=== PATIENT | female | born 1930 | race Caucasian/White ===

== ENCOUNTER 2017-12-21 18:19 | Inpatient (IN) | payer MEDICARE ==
[~2017-12-21] VITALS: Ht 170.2 cm; Wt 95.7 kg
[~2017-12-21 18:19] MED LIST: AMLO5TAB96 PO; CLOP75 PO; GLIP5 PO; GLUCTAB PO; LASI20TA PO; LORT5TAB PO; MAGNESIUM GLUC PO; POTA-243 PO; SIMV20 PO; TOPR50TA PO; [UNRECOGNIZED DRUG - OTHER] PO
[2017-12-21 18:47] VITALS: BP 212/93; PULSE 59; RESP 18; TEMP 98.3; O2SAT 97
[2017-12-21 19:57] VITALS: BP 205/88; PULSE 52; RESP 18; O2SAT 96
--- NOTE | 2017-12-21 20:02 | PD ---
HPI Chief Complaint: Fall Time Seen by Provider: 19:43 Travel History International Travel<30 days: No Contact w/Intl Traveler<30days: No Traveled to known affect area: No History of Present Illness HPI 87-year-old female presents for evaluation after mechanical fall. This afternoon the patient reports that she tripped and fell, landing on her right hip. Since then she has had pain in her right hip and inability to put weight on her right leg. Pain is aching, constant, worse with movement. She reports previous history of right hip fracture which required operative repair in [place] 5 years ago. She denies any head injury, neck or back pain, injury to the arms, chest, abdomen, back. Denies any open wounds. She has no other complaints at this time. PFSH Past Medical History Hx Anticoagulant Therapy: Yes (ASA) Cardiac Catheterization: Yes (STENT PLACED 5 YRS AGO) High Cholesterol: Yes Chest Pain: Yes Coronary Artery Disease: Yes Diabetes: Yes Diminished Hearing: No Hypertension: Yes Menopausal: Yes Social History Alcohol Use: No Tobacco Use: No Substance Use: No Allergies-Medications (Allergen,Severity, Reaction): Coded Allergies: No Known Allergies (Verified Adverse Reaction, Unknown, 12/21/17) Reported Meds & Prescriptions Reported Meds & Active Scripts Active Lortab 5/500 (Acetaminophen/Hydrocodone Bitart) 5 Mg/500 Mg Tab 1-2 Tab PO Q4- 6HPRN FOR PAIN Reported Zocor (Simvastatin) 20 Mg Tab 20 Mg PO HS Norvasc (Amlodipine Besylate) 5 Mg Tab 5 Mg PO DAILY [Magnesium Gluc] 500 Mg PO DAILY [Hazaar] 100 PO DAILY 100/25 Glucophage (Metformin HCl) 500 Mg Tab 500 Mg PO BID 2 TABS Lasix (Furosemide) 20 Mg Tab 20 Mg PO DAILY Glucotrol (Glipizide) 5 Mg Tab 5 Mg PO BID Plavix (Clopidogrel Bisulfate) 75 Mg Tab 75 Mg PO DAILY K-Dur (Potassium Chloride) 10 Meq Tabcr 10 Meq PO DAILY Toprol Xl (Metoprolol Succinate) 50 Mg Tabcr 50 Mg PO BID Review of Systems Except as stated in HPI: all other systems reviewed are Neg Physical Exam Narrative GENERAL: Well-developed well-nourished female in no acute distress SKIN: Warm and dry. HEAD: Atraumatic. Normocephalic. EYES: Pupils equal and round. No scleral icterus. No injection or drainage. ENT: No nasal bleeding or discharge. Mucous membranes pink and moist. NECK: Trachea midline. No JVD. CARDIOVASCULAR: Regular rate and rhythm. No murmur appreciated. RESPIRATORY: No accessory muscle use. Clear to auscultation. Breath sounds equal bilaterally. GASTROINTESTINAL: Abdomen soft, non-tender, nondistended. Hepatic and splenic margins not palpable. MUSCULOSKELETAL: No obvious deformities. Tender to palpation right hip. There is pain with passive and attempts at active range of motion of the right hip. No obvious shortening or malrotation of the hip. NEUROLOGICAL: Awake and alert. No obvious cranial nerve deficits. Motor grossly within normal limits. Normal speech. Data Data Last Documented VS Vital Signs Date Time Temp Pulse Resp B/P (MAP) Pulse Ox O2 Delivery O2 Flow Rate FiO2 12/21/17 20:13 55 96 Room Air 12/21/17 19:57 18 205/88 (127) 12/21/17 18:47 98.3 Orders Orders Femur (Ap & Lat/2vws) (12/21/17 19:57) Pelvis, Ap Only (Routine) (12/21/17 19:57) Morphine Inj (Morphine Inj) (12/21/17 21:15) Ondansetron Inj (Zofran Inj) (12/21/17 21:15) Complete Blood Count With Diff (12/21/17 21:14) Basic Metabolic Panel (Bmp) (12/21/17 21:14) Act Partial Throm Time (Ptt) (12/21/17 21:14) Prothrombin Time / Inr (Pt) (12/21/17 21:14) Admit Order (Ed Use Only) (12/21/17 21:46) Labs Laboratory Tests Test 12/21/17 21:15 White Blood Count 8.4 TH/MM3 Red Blood Count 5.35 MIL/MM3 Hemoglobin 14.0 GM/DL Hematocrit 42.6 % Mean Corpuscular Volume 79.5 FL Mean Corpuscular Hemoglobin 26.2 PG Mean Corpuscular Hemoglobin Concent 33.0 % Red Cell Distribution Width 16.2 % Platelet Count 156 TH/MM3 Mean Platelet Volume 9.1 FL Neutrophils (%) (Auto) 83.6 % Lymphocytes (%) (Auto) 9.3 % Monocytes (%) (Auto) 5.8 % Eosinophils (%) (Auto) 0.9 % Basophils (%) (Auto) 0.4 % Neutrophils # (Auto) 7.0 TH/MM3 Lymphocytes # (Auto) 0.8 TH/MM3 Monocytes # (Auto) 0.5 TH/MM3 Eosinophils # (Auto) 0.1 TH/MM3 Basophils # (Auto) 0.0 TH/MM3 CBC Comment DIFF FINAL Differential Comment MDM Medical Decision Making Medical Screen Exam Complete: Yes Emergency Medical Condition: Yes Medical Record Reviewed: Yes Differential Diagnosis Right hip fracture, contusion, strain, hematoma Narrative Course X-ray imaging reveals a lucency in the right symphysis pubis suggestive of fracture. Right femur x-ray reveals no evidence of fracture. Unfortunately the patient is still unable to ambulate and therefore she will be admitted for observation. IV analgesics, lab work has been ordered. Discussed with Dr. Tirado who is agreeable with admission. Diagnosis Primary Impression: Closed fracture of symphysis pubis Admitting Information Admitting Physician Requests: Observation Vikash Villar Dec 21, 2017 20:02
--- NOTE | 2017-12-21 21:04 | RADRPT ---
EXAM DATE/TIME: 12/21/2017 20:16 [facility] COMPARISON: FEMUR RIGHT (AP & LAT/2VWS), December 21, 2017, 20:16. INDICATIONS : Pelvic pain post fall. MEDICAL HISTORY : None. SURGICAL HISTORY : Right hip replacement. ENCOUNTER: Initial ACUITY: 1 day PAIN SCORE: 8/10 LOCATION: Bilateral pelvis FINDINGS: There is a linear lucency involving the right symphysis pubis suggestive of fracture. Clinical correl ation is recommended. CONCLUSION: Linear lucency involving the right symphysis pubis suggestive of fracture. Clinical c orrelation is recommended. Hector Calzada MD on December 21, 2017 at 21:01 Board Certified Radiologist. This report was verified electronically.
--- NOTE | 2017-12-21 21:05 | RADRPT ---
EXAM DATE/TIME: 12/21/2017 20:16 [facility] COMPARISON: No previous studies available for comparison. INDICATIONS : Right femur pain post fall. MEDICAL HISTORY : None. SURGICAL HISTORY : None. ENCOUNTER: Initial ACUITY: 1 day PAIN SCORE: 8/10 LOCATION: Right proximal femur. FINDINGS: Hardware is noted within the right femur. No acute fracture or dislocation the right femur is noted d egenerative changes are noted involving the right knee joint. CONCLUSION: No acute fracture or dislocation of the right femur. Degenerative changes involving t he right knee joint. Hector Calzada MD on December 21, 2017 at 21:03 Board Certified Radiologist. This report was verified electronically.
[2017-12-21] MEDS ORDERED: MORPHINE SULFATE 4 MG/ML INJ IV PUSH ONE (21:15)
[2017-12-21] MEDS ORDERED: ONDANSETRON HCL 4 MG/2 ML VIAL IV PUSH ONE (21:15)
[2017-12-21 21:44] LABS: BASOPHIL % 0.4 % (0.0-2.0); EOSINOPHIL # 0.1 TH/MM3 (0-0.4); EOSINOPHIL % 0.9 % (0.0-4.0); HEMATOCRIT 42.6 % (35.0-46.0); LYMPH % 9.3 % (9.0-44.0); LYMPHOCYTE # 0.8 TH/MM3 (1.0-4.8); MEAN CELL VOLUME 79.5 FL (80.0-100.0); MEAN CORPUSCULAR HEMOGLOBIN 26.2 PG (27.0-34.0); MEAN PLATELET VOLUME 9.1 FL (7.0-11.0); MONO % 5.8 % (0.0-8.0); MONOCYTE # 0.5 TH/MM3 (0-0.9); NEUT % 83.6 % (16.0-70.0); PLATELET COUNT 156 TH/MM3 (150-450); RED BLOOD COUNT 5.35 MIL/MM3 (4.00-5.30); RED CELL DISTRIBUTION WIDTH 16.2 % (11.6-17.2); WHITE BLOOD COUNT 8.4 TH/MM3 (4.0-11.0)
[2017-12-21 22:01] LABS: INTERNATIONAL NORMALIZED RATIO 0.9 RATIO; PROTHROMBIN TIME - PATIENT 9.6 SEC (9.8-11.6)
[2017-12-21 22:02] LABS: BICARBONATE 30.5 MEQ/L (21.0-32.0); CALCIUM 9.3 MG/DL (8.5-10.1); CREATININE 1.04 MG/DL (0.50-1.00)
[2017-12-21 22:34] VITALS: BP 197/79; PULSE 53; RESP 20; O2SAT 97
--- NOTE | 2017-12-21 23:13 | HHI.HP ---
HPI Service [facility] Primary Care Physician Non-Staff Admission Diagnosis right symphysis pubis fracture, inability to ambulate Diagnoses: Chief Complaint: Fall, right hip pain Travel History International Travel<30 Days: No Contact w/Intl Traveler <30 Da: No Traveled to Known Affected Are: No History of Present Illness 87-year-old female with a medical history significant for diabetes, hypertension , coronary artery disease status post stent who normally ambulates with a cane. Patient reports she was walking and tripped on the sidewalk and landed on her right hip. She has been experiencing severe pain and was unable to bear weight. She has been given IV pain medication in the emergency room but was still unable to ambulate. Currently she reports feeling okay at rest but any movement of the hip causes her to have pain. She lives alone. She denies any lightheadedness or shortness of breath prior to falling. Review of Systems Constitutional: DENIES: Fever, Chills Respiratory: DENIES: Shortness of breath Gastrointestinal: DENIES: Abdominal pain, Nausea, Vomiting Musculoskeletal: COMPLAINS OF: Joint pain Neurologic: COMPLAINS OF: Abnormal gait, Poor Balance Except as stated in HPI: all other systems reviewed are Neg Past Family Social History Past Medical History diabetes, hypertension, coronary artery disease status post stent Past Surgical History Right he surgery after fracture. Reportedly was fixed with pins and wires. Reported Medications Reported Meds & Active Scripts Active Lortab 5/500 (Acetaminophen/Hydrocodone Bitart) 5 Mg/500 Mg Tab 1-2 Tab PO Q4- 6HPRN FOR PAIN Reported Zocor (Simvastatin) 20 Mg Tab 20 Mg PO HS Norvasc (Amlodipine Besylate) 5 Mg Tab 5 Mg PO DAILY [Magnesium Gluc] 500 Mg PO DAILY [Hazaar] 100 PO DAILY 100/25 Glucophage XR 24 HR (Metformin HCl) 500 Mg Tab 500 Mg PO BID 2 TABS Lasix (Furosemide) 20 Mg Tab 20 Mg PO DAILY Glucotrol (Glipizide) 5 Mg Tab 5 Mg PO BID K-Dur (Potassium Chloride) 10 Meq Tabcr 10 Meq PO DAILY Toprol Xl (Metoprolol Succinate) 50 Mg Tabcr 50 Mg PO BID Allergies: Coded Allergies: No Known Allergies (Verified Allergy, Unknown, 12/21/17) Family History Reviewed and found to be noncontributory. Social History Does not use tobacco or alcohol. Normally lives in [place] with her daughter. However when she is down here she is mostly by herself but has friends who visits.. Physical Exam Vital Signs Vital Signs Date Time Temp Pulse Resp B/P (MAP) Pulse Ox O2 Delivery O2 Flow Rate FiO2 12/21/17 22:34 53 20 197/79 (118) 97 Room Air 12/21/17 20:13 55 96 Room Air 12/21/17 19:57 52 18 205/88 (127) 96 12/21/17 18:47 98.3 59 18 212/93 (132) 97 Physical Exam GENERAL: Elderly female in no acute distress. SKIN: No rashes, ecchymoses or lesions. Cool and dry. HEAD: Atraumatic. Normocephalic. No temporal or scalp tenderness. EYES: Pupils equal round and reactive. Extraocular motions intact. No scleral icterus. No injection or drainage. ENT: Nose without bleeding, purulent drainage or septal hematoma. Throat without erythema, tonsillar hypertrophy or exudate. Uvula midline. Airway patent. NECK: Trachea midline. No JVD or lymphadenopathy. Supple, nontender, no meningeal signs. CARDIOVASCULAR: Normal rate and regular rhythm. 2 out of 6 MILEY murmur best heard over the right upper sternal border. RESPIRATORY: Clear to auscultation. Breath sounds equal bilaterally. No wheezes , rales, or rhonchi. GASTROINTESTINAL: Abdomen soft, non-tender, nondistended. No hepato-splenomegaly , or palpable masses. No guarding. MUSCULOSKELETAL: Right hip is tender to palpation. Right hip range of motion is limited due to pain. Rest of the MSK exam unremarkable. Good range of motion and strength. NEUROLOGICAL: Awake and alert. Cranial nerves II through XII intact. Motor and sensory grossly within normal limits. Five out of 5 muscle strength in all muscle groups. Normal speech. Laboratory Laboratory Tests Test 12/21/17 21:15 White Blood Count 8.4 Red Blood Count 5.35 Hemoglobin 14.0 Hematocrit 42.6 Mean Corpuscular Volume 79.5 Mean Corpuscular Hemoglobin 26.2 Mean Corpuscular Hemoglobin Concent 33.0 Red Cell Distribution Width 16.2 Platelet Count 156 Mean Platelet Volume 9.1 Neutrophils (%) (Auto) 83.6 Lymphocytes (%) (Auto) 9.3 Monocytes (%) (Auto) 5.8 Eosinophils (%) (Auto) 0.9 Basophils (%) (Auto) 0.4 Neutrophils # (Auto) 7.0 Lymphocytes # (Auto) 0.8 Monocytes # (Auto) 0.5 Eosinophils # (Auto) 0.1 Basophils # (Auto) 0.0 CBC Comment DIFF FINAL Differential Comment Prothrombin Time 9.6 Prothromb Time International Ratio 0.9 Activated Partial Thromboplast Time 24.0 Blood Urea Nitrogen 17 Creatinine 1.04 Random Glucose 249 Calcium Level 9.3 Sodium Level 137 Potassium Level 3.5 Chloride Level 99 Carbon Dioxide Level 30.5 Anion Gap 8 Estimat Glomerular Filtration Rate 50 Result Diagram: 12/21/17211412/21/172114 Imaging Last Impressions Pelvis X-Ray 12/21/171956 Signed Impressions: Service Date/Time: Thursday, December 21, 2017 20:16 - CONCLUSION: Linear lucency involving the right symphysis pubis suggestive of fracture. Clinical correlation is recommended. Hector Calzada MD Femur X-Ray 12/21/171956 Signed Impressions: Service Date/Time: Thursday, December 21, 2017 20:16 - CONCLUSION: No acute fracture or dislocation of the right femur. Degenerative changes involving the right knee joint. MD Grace Yanceyi VTE Risk Assessment Caprini VTE Risk Assessment: Mod/High Risk (score >= 2) Caprini Risk Assessment Model Point Value = 1 Point Value = 2 Point Value = 3 Point Value = 5 Age 41-60 Minor surgery BMI > 25 kg/m2 Swollen legs Varicose veins or History of unexplained or recurrent spontaneous Oral contraceptives or hormone replacement Sepsis (< 1 month) Serious lung disease, including pneumonia (< 1 month) Abnormal pulmonary function Acute myocardial infarction Congestive heart failure (< 1 month) History of inflammatory bowel disease Medical patient at bed rest Age 61-74 Arthroscopic surgery Major open surgery (> 45 min) Laparoscopic surgery (> 45 min) Malignancy Confined to bed (> 72 hours) Immobilizing plaster cast Central venous access Age >= 75 History of VTE Family history of VTE Factor V Leiden Prothrombin [id number] Lupus anticoagulant Anticardiolipin antibodies Elevated serum homocysteine Heparin-induced thrombocytopenia Other congenital or acquired thrombophilia Stroke (< 1 month) Elective arthroplasty Hip, pelvis, or leg fracture Acute spinal cord injury (< 1 month) Prophylaxis Regimen Total Risk Factor Score Risk Level Prophylaxis Regimen 0-1 Low Early ambulation 2 Moderate Order ONE of the following: *Sequential Compression Device (SCD) *Heparin 5000 units SQ BID 3-4 Higher Order ONE of the following medications: *Heparin 5000 units SQ TID *Enoxaparin/Lovenox 40 mg SQ daily (WT < 150 kg, CrCl > 30 mL/min) *Enoxaparin/Lovenox 30 mg SQ daily (WT < 150 kg, CrCl > 10-29 mL/min) *Enoxaparin/Lovenox 30 mg SQ BID (WT < 150 kg, CrCl > 30 mL/min) AND/OR *Sequential Compression Device (SCD) 5 or more Highest Order ONE of the following medications: *Heparin 5000 units SQ TID (Preferred with Epidurals) *Enoxaparin/Lovenox 40 mg SQ daily (WT < 150 kg, CrCl > 30 mL/min) *Enoxaparin/Lovenox 30 mg SQ daily (WT < 150 kg, CrCl > 10-29 mL/min) *Enoxaparin/Lovenox 30 mg SQ BID (WT < 150 kg, CrCl > 30 mL/min) AND *Sequential Compression Device (SCD) Assessment and Plan Problem List: (1) Closed fracture of symphysis pubis ICD Code: S32.599A - Other specified fracture of unspecified pubis, initial encounter for closed fracture Status: Acute Plan: Patient has not been able to ambulate in the ED. She is frail with advanced age. She normally uses a cane. Consult orthopedics for assistance Pain management. She does not want to take narcotics. We will try Aleve per her request. Lortab as needed for breakthrough pain. (2) Diabetes ICD Code: E11.9 - Type 2 diabetes mellitus without complications Plan: Sliding scale insulin with Accu-Cheks. Plan to resume oral hypoglycemic agents on discharge. (3) Hypertension ICD Code: I10 - Essential (primary) hypertension Plan: Currently uncontrolled, likely secondary to pain - Pain control as above - Resume metoprolol and amlodipine. Vasotec as needed. Discussed Condition With ED staff. Physician Certification 2 Midnight Certification Type: Admission for Inpatient Services Order for Inpatient Services The services are ordered in accordance with Medicare regulations or non- Medicare payer requirements, as applicable. In the case of services not specified as inpatient-only, they are appropriately provided as inpatient services in accordance with the 2-midnight benchmark. Estimated LOS (days): 2 days is the estimated time the patient will need to remain in the hospital, assuming treatment plan goals are met and no additional complications. Post-Hospital Plan: Not yet determined Amanda Tirado MD Dec 21, 2017 23:13
[2017-12-21] MEDS ORDERED: GLUCAGON 1 MG/ML VIAL OTHER PRN (23:15)
[2017-12-21] MEDS ORDERED: BISACODYL 10 MG SUPP RECTAL PRN (23:15)
[2017-12-21] MEDS ORDERED: SODIUM CHLORIDE 0.9% FLUSH 10 ML FLUSH IV FLUSH PRN (23:15)
[2017-12-21] MEDS ORDERED: SENNOSIDES 8.6 MG TAB PO PRN (23:15)
[2017-12-21] MEDS ORDERED: ACETAMINOPHEN 325 MG TAB PO PRN (23:15)
[2017-12-21] MEDS ORDERED: ONDANSETRON HCL 4 MG/2 ML VIAL IVP PRN (23:15)
[2017-12-21] MEDS ORDERED: NALOXONE HCL 0.4 MG/ML AMP IV PUSH PRN (23:15)
[2017-12-21] MEDS ORDERED: MORPHINE SULFATE 2 MG/ML INJ IV PUSH PRN (23:15)
[2017-12-21] MEDS ORDERED: DEXTROSE 50% IN WATER 50 ML VIAL(D50) IV PUSH PRN (23:15)
[2017-12-21] MEDS ORDERED: LACTULOSE SYRUP 20 GM/30 ML CUP PO PRN (23:15)
[2017-12-21] MEDS ORDERED: ACETAMINOPHEN/HYDROcodone 325 MG/5 MG TAB PO PRN (23:15)
[2017-12-22] VITALS (14 sets, daily range): BP systolic 136–192; BP diastolic 57–82; PULSE 50–81; RESP 16–20; TEMP 96.6–98.5; O2SAT 92–97
[2017-12-22] MEDS: HEPARIN SODIUM - SQ 10,000 UNITS/ML VIAL SQ SCH ×3 (00:57→23:27)
[2017-12-22] MEDS: ENALAPRILAT 1.25 MG/ML VIAL IV PUSH PRN (01:26)
[2017-12-22] MEDS: IBUPROFEN 400 MG TAB PO PRN ×3 (01:27→18:58)
[2017-12-22 04:22] LABS: AUTOMATED NEUTROPHIL # 4.7 TH/MM3 (1.8-7.7); BASOPHIL % 0.4 % (0.0-2.0); EOSINOPHIL # 0.1 TH/MM3 (0-0.4); EOSINOPHIL % 1.6 % (0.0-4.0); HEMATOCRIT 34.8 % (35.0-46.0); HEMOGLOBIN 11.7 GM/DL (11.6-15.3); LYMPH % 11.9 % (9.0-44.0); LYMPHOCYTE # 0.7 TH/MM3 (1.0-4.8); MEAN CELL VOLUME 78.7 FL (80.0-100.0); MEAN CORPUSCULAR HEMOGLOBIN 26.4 PG (27.0-34.0); MEAN CORPUSCULAR HGB CONC 33.6 % (32.0-36.0); MEAN PLATELET VOLUME 8.2 FL (7.0-11.0); MONO % 7.5 % (0.0-8.0); MONOCYTE # 0.5 TH/MM3 (0-0.9); NEUT % 78.6 % (16.0-70.0); PLATELET COUNT 121 TH/MM3 (150-450); RED BLOOD COUNT 4.42 MIL/MM3 (4.00-5.30)
[2017-12-22 04:46] LABS: BICARBONATE 31.9 MEQ/L (21.0-32.0); CALCIUM 8.5 MG/DL (8.5-10.1); CREATININE 0.85 MG/DL (0.50-1.00)
[2017-12-22] MEDS: INSULIN ASPART SUPPLEMENTAL SCALE SQ SCH ×4 (08:00→20:56)
[2017-12-22] MEDS ORDERED: amLODIPine BESYLATE 5 MG TAB PO SCH (09:00)
[2017-12-22] MEDS ORDERED: METOPROLOL SUCCINATE 50 MG EXTENDED RELEASE TAB PO SCH (09:00)
[2017-12-22] MEDS: POTASSIUM CHLORIDE 10 MEQ CONTROLLED RELEASE TAB PO SCH (09:21)
[2017-12-22] MEDS: SODIUM CHLORIDE 0.9% FLUSH 10 ML FLUSH IV FLUSH SCH ×2 (09:22→22:11)
--- NOTE | 2017-12-22 11:32 | PD.CONS ---
[facility] Service Orthopedic Surgeons Consult Requested By Dr. Vikash Villar Reason for Consult Fracture of the pelvis Primary Care Physician Non-Staff Admission Diagnosis right symphysis pubis fracture, inability to ambulate Diagnoses: (1) Closed fracture of symphysis pubis Diagnosis: Principal (2) Diabetes Diagnosis: Secondary (3) Hypertension Diagnosis: Secondary Chief Complaint: Right hip pain and difficulty with ambulation History of Present Illness This patient is an 87-year-old female who normally annulus with a cane. She was walking in an area of Street construction. She tripped and fell landing on her right side. She was unable to ambulate. She is brought by [facility] to [facility]. X-rays were obtained. She had full evaluation and was admitted to the Medical Center last night. X-rays showed evidence of a right hemipelvis fracture. I have been asked to see the patient in consultation Review of Systems Constitutional: DENIES: Diaphoretic episodes, Fatigue, Fever, Weight gain, Weight loss, Chills, Dizziness, Change in appetite, Night Sweats Endocrine: DENIES: Abnorml menstrual pattern, Heat/cold intolerance, Polydipsia , Polyuria, Polyphagia Eyes: DENIES: Blurred vision, Diplopia, Eye inflammation, Eye pain, Vision loss , Photosensitivity, Double Vision Ears, nose, mouth, throat: DENIES: Tinnitus, Hearing loss, Vertigo, Nasal discharge, Oral lesions, Throat pain, Hoarseness, Ear Pain, Running Nose, Epistaxis, Sinus Pain, Toothache, Odynophagia Respiratory: DENIES: Apneas, Cough, Snoring, Wheezing, Hemoptysis, Sputum production, Shortness of breath Cardiovascular: DENIES: Chest pain, Palpitations, Syncope, Dyspnea on Exertion , PND, Lower Extremity Edema, Orthopnea, Claudication Gastrointestinal: DENIES: Abdominal pain, Black stools, Bloody stools, Constipation, Diarrhea, Nausea, Vomiting, Difficulty Swallowing, Anorexia Genitourinary: DENIES: Abnormal vaginal bleeding, Dysmenorrhea, Dyspareunia, Sexual dysfunction, Urinary frequency, Urinary incontinence, Urgency, Hematuria , Dysuria, Nocturia, Vaginal discharge Musculoskeletal: COMPLAINS OF: Joint pain, Stiffness Integumentary: DENIES: Abnormal pigmentation, Pruritus, Rash, Nail changes, Breast masses, Breast skin changes, Nipple discharge Hematologic/lymphatic: DENIES: Bruising, Lymphadenopathy Immunologic/allergic: DENIES: Eczema, Urticaria Neurologic: DENIES: Abnormal gait, Headache, Localized weakness, Paresthesias, Seizures, Speech Problems, Tremor, Poor Balance Psychiatric: DENIES: Anxiety, Confusion, Mood changes, Depression, Hallucinations, Agitation, Suicidal Ideation, Homicidal Ideation, Delusions Past Family Social History Past Medical History diabetes, hypertension, coronary artery disease status post stent Past Surgical History Right he surgery after fracture. Reportedly was fixed with pins and wires. Allergies: Coded Allergies: No Known Allergies (Verified Allergy, Unknown, 12/21/17) Active Ordered Medications Current Medications Medications (Trade) Dose Ordered Sig/Nataly Route Start Time Stop Time Status Last Admin (Norvasc) 5 mg DAILY PO 12/22/17 09:00 12/22/17 09:21 (Toprol Xl) 50 mg BID PO 12/22/17 09:00 12/22/17 09:20 (KCl) 10 meq DAILY PO 12/22/17 09:00 12/22/17 09:21 (Pravachol) 40 mg HS PO 12/22/17 21:00 (NS Flush) 2 ml UNSCH PRN IV FLUSH 12/21/17 23:15 (NS Flush) 2 ml BID IV FLUSH 12/22/17 09:00 12/22/17 09:22 (Tylenol) 650 mg Q4H PRN PO 12/21/17 23:15 (Zofran Inj) 4 mg Q6H PRN IVP 12/21/17 23:15 (Heparin Inj) 5,000 units Q12H SQ 12/21/17 23:15 12/22/17 00:57 (Narcan Inj) 0.4 mg UNSCH PRN IV PUSH 12/21/17 23:15 (Milk Of Magnesia Liq) 30 ml Q12H PRN PO 12/21/17 23:15 (Senokot) 17.2 mg Q12H PRN PO 12/21/17 23:15 (Dulcolax Supp) 10 mg DAILY PRN RECTAL 12/21/17 23:15 (Lactulose Liq) 30 ml DAILY PRN PO 12/21/17 23:15 (Vasotec Inj) 1.25 mg Q6H PRN IV PUSH 12/21/17 23:15 12/22/17 01:26 (Motrin) 400 mg Q6H PRN PO 12/21/17 23:15 12/22/17 09:22 (Crandall 5-325 Mg) 1 tab Q6H PRN PO 12/21/17 23:15 (Morphine Inj) 2 mg Q4H PRN IV PUSH 12/21/17 23:15 (D50w (Vial) Inj) 50 ml UNSCH PRN IV PUSH 12/21/17 23:15 (Glucagon Inj) 1 mg UNSCH PRN OTHER 12/21/17 23:15 (NovoLOG SUPPLEMENTAL SCALE) 1 ACHS SLIDING SCALE SQ 12/22/17 08:00 (Glucotrol) 5 mg BID PO 12/22/17 21:00 UNV Non-Formulary Medication 500 mg BID PO 12/22/17 21:00 UNV Reported Meds & Active Scripts Active Lortab 5/500 (Acetaminophen/Hydrocodone Bitart) 5 Mg/500 Mg Tab 1-2 Tab PO Q4- 6HPRN FOR PAIN Reported Zocor (Simvastatin) 20 Mg Tab 20 Mg PO HS Norvasc (Amlodipine Besylate) 5 Mg Tab 5 Mg PO DAILY [Magnesium Gluc] 500 Mg PO DAILY [Hazaar] 100 PO DAILY 100/25 Glucophage XR 24 HR (Metformin HCl) 500 Mg Tab 500 Mg PO BID 2 TABS Lasix (Furosemide) 20 Mg Tab 20 Mg PO DAILY Glucotrol (Glipizide) 5 Mg Tab 5 Mg PO BID K-Dur (Potassium Chloride) 10 Meq Tabcr 10 Meq PO DAILY Toprol Xl (Metoprolol Succinate) 50 Mg Tabcr 50 Mg PO BID Family History Reviewed and found to be noncontributory. Social History Does not use tobacco or alcohol. Normally lives in [place] with her daughter. However when she is down here she is mostly by herself but has friends who visits.. Physical Exam Vital Signs Vital Signs Date Time Temp Pulse Resp B/P (MAP) Pulse Ox O2 Delivery O2 Flow Rate FiO2 12/22/17 08:00 97.9 57 18 143/60 (87) 94 12/22/17 04:00 52 12/22/17 03:55 96.7 81 18 140/75 (96) 97 12/22/17 03:09 97 Nasal Cannula 2.00 12/22/17 02:12 51 12/22/17 01:13 96 Nasal Cannula 2.00 12/22/17 01:00 97.0 58 18 192/81 (118) 95 12/21/17 22:34 53 20 197/79 (118) 97 Room Air 12/21/17 20:13 55 96 Room Air 12/21/17 19:57 52 18 205/88 (127) 96 12/21/17 18:47 98.3 59 18 212/93 (132) 97 Physical Exam The patient lies in bed. HEENT: Normocephalic atraumatic pupils equal round reactive. NECK: Supple. No abnormal masses. Full range of motion. CHEST: Clear to auscultation with no rales or rhonchi's or wheezes. HEART: Regular rate and rhythm. No murmurs. ABDOMEN: Soft, nontender, no masses. Normal active bowel sounds. GENITOURINARY: Deferred. MUSCULOSKELETAL: Right hip has a well-healed incision. Mild restricted range of motion of the right hip. Mild shortening right leg compared to the left. Moderate tenderness in the region of the anterior ramus and pubic sepsis. Moderate posterior discomfort. Mild ecchymosis. No bleeding Laboratory Laboratory Tests Test 12/21/17 21:15 12/22/17 03:45 White Blood Count 8.4 6.0 Red Blood Count 5.35 4.42 Hemoglobin 14.0 11.7 Hematocrit 42.6 34.8 Mean Corpuscular Volume 79.5 78.7 Mean Corpuscular Hemoglobin 26.2 26.4 Mean Corpuscular Hemoglobin Concent 33.0 33.6 Red Cell Distribution Width 16.2 16.0 Platelet Count 156 121 Mean Platelet Volume 9.1 8.2 Neutrophils (%) (Auto) 83.6 78.6 Lymphocytes (%) (Auto) 9.3 11.9 Monocytes (%) (Auto) 5.8 7.5 Eosinophils (%) (Auto) 0.9 1.6 Basophils (%) (Auto) 0.4 0.4 Neutrophils # (Auto) 7.0 4.7 Lymphocytes # (Auto) 0.8 0.7 Monocytes # (Auto) 0.5 0.5 Eosinophils # (Auto) 0.1 0.1 Basophils # (Auto) 0.0 0.0 CBC Comment DIFF FINAL DIFF FINAL Differential Comment Prothrombin Time 9.6 Prothromb Time International Ratio 0.9 Activated Partial Thromboplast Time 24.0 Blood Urea Nitrogen 17 17 Creatinine 1.04 0.85 Random Glucose 249 157 Calcium Level 9.3 8.5 Sodium Level 137 140 Potassium Level 3.5 3.5 Chloride Level 99 103 Carbon Dioxide Level 30.5 31.9 Anion Gap 8 5 Estimat Glomerular Filtration Rate 50 64 Result Diagram: 12/22/17 0345 12/22/17344 Imaging X-ray reviewed and review the radiologist's interpretation shows evidence of a right anterior ramus fracture extending into the pubic symphysis. There is evidence of a right peritrochanteric hip fracture healed with shortening and intramedullary joan. No evidence of a new fracture of the hip joint itself Assessment & Plan Assessment and Plan Right hemipelvis fracture. Right anterior ramus fracture. Possible right sacral fracture PLAN: Weightbearing as tolerated right leg with a walker or wheelchair. This patient likely will need to be admitted to assisted for care if she is unable to navigate without significant assistance. Nonsurgical treatment of her right hemipelvis fracture. Follow-up in the office in about 3-4 weeks Talha Perez MD Dec 22, 2017 11:32
[2017-12-22] MEDS ORDERED: FLUO10TA PO (13:03)
[2017-12-22] MEDS ORDERED: HYDR25TA5 PO (13:03)
[2017-12-22] MEDS ORDERED: LOSA50TA PO (13:06)
--- NOTE | 2017-12-22 14:55 | HHI.PR ---
Subjective Remarks Follow-up for right pelvic fracture. Patient is doing well in bed. However she complains of pain whenever she moves. No chest pain, shortness of breath, fever or chills. Objective Vitals Vital Signs Date Time Temp Pulse Resp B/P (MAP) Pulse Ox O2 Delivery O2 Flow Rate FiO2 12/22/17 12:00 96.6 55 18 149/68 (95) 93 12/22/17 08:00 97.9 57 18 143/60 (87) 94 12/22/17 04:00 52 12/22/17 03:55 96.7 81 18 140/75 (96) 97 12/22/17 03:09 97 Nasal Cannula 2.00 12/22/17 02:12 51 12/22/17 01:13 96 Nasal Cannula 2.00 12/22/17 01:00 97.0 58 18 192/81 (118) 95 12/21/17 22:34 53 20 197/79 (118) 97 Room Air 12/21/17 20:13 55 96 Room Air 12/21/17 19:57 52 18 205/88 (127) 96 12/21/17 18:47 98.3 59 18 212/93 (132) 97 I/O 12/21/17 12/21/17 12/21/17 12/22/17 12/22/17 12/22/17 07:00 15:00 23:00 07:00 15:00 23:00 Intake Total 360 ml Balance 360 ml Intake Oral 360 ml # Voids 1 # Bowel Movements 0 Result Diagram: 12/22/17 0345 12/22/17 0345 Imaging Last Impressions Pelvis X-Ray 12/21/171956 Signed Impressions: Service Date/Time: Thursday, December 21, 2017 20:16 - CONCLUSION: Linear lucency involving the right symphysis pubis suggestive of fracture. Clinical correlation is recommended. Hector Calzada MD Femur X-Ray 12/21/171956 Signed Impressions: Service Date/Time: Thursday, December 21, 2017 20:16 - CONCLUSION: No acute fracture or dislocation of the right femur. Degenerative changes involving the right knee joint. Hector Calzada MD Objective Remarks GENERAL: Alert, oriented 3, NAD. SKIN: Warm and dry. HEAD: Normocephalic. EYES: No scleral icterus. No injection or drainage. NECK: Supple, trachea midline. No JVD or lymphadenopathy. CARDIOVASCULAR: Regular rate and rhythm without murmurs, gallops, or rubs. RESPIRATORY: Breath sounds equal bilaterally. No accessory muscle use. GASTROINTESTINAL: Abdomen soft, non-tender, nondistended. MUSCULOSKELETAL: No cyanosis, or edema. BACK: Nontender without obvious deformity. No CVA tenderness. Procedures None A/P Problem List: (1) Closed fracture of symphysis pubis ICD Code: S32.599A - Other specified fracture of unspecified pubis, initial encounter for closed fracture Status: Acute (2) Diabetes ICD Code: E11.9 - Type 2 diabetes mellitus without complications (3) Hypertension ICD Code: I10 - Essential (primary) hypertension Assessment and Plan Ms. Esparza is a pleasant 87-year-old female with a history of diabetes , hypertension, coronary artery disease who presented to the emergency department after she fell and injured her right hip. ED workup indicated right pubic symphysis fracture. Orthopedic surgery was consulted. - Right pubic symphysis fracture -Orthopedic surgery recommends nonsurgical management. -Weightbearing as tolerated per orthopedic surgery. Patient is working with physical therapy. -Patient will likely need SNF placement -Pain control with ibuprofen and [place] as needed. - Diabetes mellitus - Hypertension - Continue Metformin, Glipizide, sliding scale insulin - Continue Losartan, HCTZ, Amlodipine and metoprolol. Full code. Heparin SQ. Luis A Lee DO Dec 22, 2017 14:55
[2017-12-22] MEDS: glipiZIDE 5 MG TAB PO SCH (16:00)
[2017-12-22] MEDS: metFORMIN HCL 500 MG TAB PO SCH (17:46)
[2017-12-22] MEDS: METOPROLOL TARTRATE 25 MG TAB PO SCH (20:09)
[2017-12-22] MEDS: PRAVASTATIN SOD 40 MG TAB PO SCH (20:55)
[2017-12-23] VITALS (8 sets, daily range): BP systolic 138–200; BP diastolic 55–81; PULSE 45–62; RESP 16–18; TEMP 96.7–98; O2SAT 95–97
[2017-12-23] MEDS: ENALAPRILAT 1.25 MG/ML VIAL IV PUSH PRN ×2 (03:52→23:08)
[2017-12-23] MEDS: INSULIN ASPART SUPPLEMENTAL SCALE SQ SCH ×4 (08:00→20:50)
--- NOTE | 2017-12-23 08:11 | PD.ORT.PN ---
Subjective Subjective Remarks Doing 'ok'. She has right hip and groin pain. Denies new radiating leg pain. Difficulty sleeping last night. No other complaints. Objective Vitals Vital Signs Date Time Temp Pulse Resp B/P (MAP) Pulse Ox O2 Delivery O2 Flow Rate FiO2 12/23/17 04:41 51 12/23/17 03:30 96.7 60 18 152/63 (92) 97 12/22/17 23:46 52 12/22/17 23:28 98.5 60 18 136/82 (100) 95 12/22/17 22:19 Nasal Cannula 2.00 12/22/17 19:42 59 12/22/17 19:35 98.5 59 20 152/57 (88) 93 12/22/17 19:30 18 12/22/17 18:11 53 12/22/17 16:40 97.8 51 16 141/60 (87) 95 12/22/17 16:00 97.9 50 18 139/59 (85) 92 12/22/17 12:00 96.6 55 18 149/68 (95) 93 I/O 12/22/17 12/22/17 12/22/17 12/23/17 12/23/17 12/23/17 07:00 15:00 23:00 07:00 15:00 23:00 Intake Total 360 ml 480 ml 360 ml 360 ml Balance 360 ml 480 ml 360 ml 360 ml Intake Oral 360 ml 480 ml 360 ml 360 ml # Voids 1 1 2 3 # Bowel Movements 0 0 0 0 Result Diagram: 12/22/17 0345 12/22/17 0345 Objective Remarks Laying in bed NAD VSS Right hip and pelvis No new skin deformity, moderate tenderness right pubis symphosis/ramus, Some pain w ROM right hip, mild limitation Distal AT strength 5/5, +sens, +nvi, neg homans Assessment & Plan Assessment and Plan Right hemipelvis fracture. Right anterior ramus fracture. Possible right sacral fracture Weightbearing as tolerated right leg with a walker or wheelchair. This patient likely will need to be admitted to intermediate for care if she is unable to navigate without significant assistance. Nonsurgical treatment of her right hemipelvis fracture. Medical following. Pt is on Heparin. Follow-up in the office in about 3-4 weeks Sejal Dobson Dec 23, 2017 08:11
[2017-12-23] MEDS: MAGNESIUM HYDROXIDE SUSP 30 ML CUP PO PRN ×2 (08:13→20:54)
[2017-12-23] MEDS: LOSARTAN 50 MG TAB PO SCH (08:13)
[2017-12-23] MEDS: metFORMIN HCL 500 MG TAB PO SCH ×2 (08:13→17:55)
[2017-12-23] MEDS: HYDROCHLOROTHIAZIDE 25 MG TAB PO SCH (08:14)
[2017-12-23] MEDS: POTASSIUM CHLORIDE 10 MEQ CONTROLLED RELEASE TAB PO SCH (08:14)
[2017-12-23] MEDS: IBUPROFEN 400 MG TAB PO PRN ×3 (08:15→20:58)
[2017-12-23] MEDS: glipiZIDE 5 MG TAB PO SCH ×2 (08:15→16:00)
[2017-12-23] MEDS: METOPROLOL TARTRATE 25 MG TAB PO SCH ×2 (08:15→20:50)
[2017-12-23] MEDS: SODIUM CHLORIDE 0.9% FLUSH 10 ML FLUSH IV FLUSH SCH ×2 (08:16→20:54)
[2017-12-23] MEDS: FLUoxetine HCL 10 MG CAP PO SCH (08:16)
[2017-12-23] MEDS: HEPARIN SODIUM - SQ 10,000 UNITS/ML VIAL SQ SCH ×2 (12:41→23:05)
[2017-12-23] MEDS ORDERED: WALKER WHEELS/F1 MIS (14:08)
[2017-12-23] MEDS ORDERED: WHEEMIS3 (14:08)
--- NOTE | 2017-12-23 14:09 | HHI.FF ---
Face to Face Verification Diagnosis: (1) Closed fracture of symphysis pubis (2) Hypertension (3) Diabetes Physical Therapy Order: Evaluate and Treat, Improve ambulation, Strength and gait training Home Health Nursing Order: Medical education Signs/symptoms of disease process Medication education-adverse effect Nursing assessment with vital signs I have seen patient Xiomara Esparza on 12/23/17. My clinical findings support the need for the requested home health care services because: Ltd mobility - disease progression Deconditioned w/ increased weakness Limited ability to care for self Need for psychosocial assistance Impaired cognition/judgement High risk of falls Infection w/ risk of complications I certify that my clinical findings support that this patient is homebound because: Unsteady gait/balance Unsafe to leave home unassisted Need for psychosocial assistance [id number] bed/chair Unable to use public transportation Luis A Lee DO Dec 23, 2017 2:09 pm
--- NOTE | 2017-12-23 18:31 | HHI.PR ---
Subjective Remarks Follow-up for right pelvic fracture. Patient is sitting in chair. No acute concerns. She is now able to ambulate somewhat better. No fever or chills. Friends at bedside. Objective Vitals Vital Signs Date Time Temp Pulse Resp B/P (MAP) Pulse Ox O2 Delivery O2 Flow Rate FiO2 12/23/17 12:00 97.0 62 16 142/64 (90) 96 12/23/17 11:13 45 12/23/17 08:00 97.6 56 16 181/81 (114) 95 12/23/17 04:41 51 12/23/17 03:30 96.7 60 18 152/63 (92) 97 12/22/17 23:46 52 12/22/17 23:28 98.5 60 18 136/82 (100) 95 12/22/17 22:19 Nasal Cannula 2.00 12/22/17 19:42 59 12/22/17 19:35 98.5 59 20 152/57 (88) 93 12/22/17 19:30 18 I/O 12/22/17 12/22/17 12/22/17 12/23/17 12/23/17 12/23/17 07:00 15:00 23:00 07:00 15:00 23:00 Intake Total 360 ml 480 ml 360 ml 360 ml Balance 360 ml 480 ml 360 ml 360 ml Intake Oral 360 ml 480 ml 360 ml 360 ml # Voids 1 1 2 3 # Bowel Movements 0 0 0 0 Result Diagram: 12/22/17 0345 12/22/17 0345 Imaging Last Impressions Pelvis X-Ray 12/21/171956 Signed Impressions: Service Date/Time: Thursday, December 21, 2017 20:16 - CONCLUSION: Linear lucency involving the right symphysis pubis suggestive of fracture. Clinical correlation is recommended. Hector Calzada MD Femur X-Ray 12/21/171956 Signed Impressions: Service Date/Time: Thursday, December 21, 2017 20:16 - CONCLUSION: No acute fracture or dislocation of the right femur. Degenerative changes involving the right knee joint. Hector Calzada MD Objective Remarks GENERAL: Alert, oriented 3, NAD. SKIN: Warm and dry. HEAD: Normocephalic. EYES: No scleral icterus. No injection or drainage. NECK: Supple, trachea midline. No JVD or lymphadenopathy. CARDIOVASCULAR: Regular rate and rhythm without murmurs, gallops, or rubs. RESPIRATORY: Breath sounds equal bilaterally. No accessory muscle use. GASTROINTESTINAL: Abdomen soft, non-tender, nondistended. MUSCULOSKELETAL: No cyanosis, or edema. BACK: Nontender without obvious deformity. No CVA tenderness. Procedures None A/P Problem List: (1) Closed fracture of symphysis pubis ICD Code: S32.599A - Other specified fracture of unspecified pubis, initial encounter for closed fracture Status: Acute (2) Diabetes ICD Code: E11.9 - Type 2 diabetes mellitus without complications (3) Hypertension ICD Code: I10 - Essential (primary) hypertension Assessment and Plan Ms. Esparza is a pleasant 87-year-old female with a history of diabetes , hypertension, coronary artery disease who presented to the emergency department after she fell and injured her right hip. ED workup indicated right pubic symphysis fracture. Orthopedic surgery was consulted. - Right pubic symphysis fracture -Orthopedic surgery recommends nonsurgical management. -Weightbearing as tolerated per orthopedic surgery. Patient is working with physical therapy. -Patient wants to go home with home health. Will arrange Walker and Wheelchair for her. -Pain control with ibuprofen and [place] as needed. - Diabetes mellitus - Hypertension - Continue Metformin, Glipizide, sliding scale insulin - Continue Losartan, HCTZ, Amlodipine and metoprolol. Full code. Heparin SQ. Discharge Plan: D/C home after PT tomorrow. Home with home health. D/C telemetry. Problem Qualifiers (1) Closed fracture of symphysis pubis: Qualified Codes: S32.599A - Other specified fracture of unspecified pubis, initial encounter for closed fracture Luis A Lee DO Dec 23, 2017 18:31
[2017-12-23] MEDS: PRAVASTATIN SOD 40 MG TAB PO SCH (20:54)
[2017-12-24 00:12] VITALS: BP 130/50
[2017-12-24 00:17] VITALS: BP 130/50
[2017-12-24 04:11] VITALS: BP 181/69
[2017-12-24 08:00] VITALS: BP 191/81; PULSE 61; RESP 16; TEMP 97.1; O2SAT 96
[2017-12-24] MEDS: INSULIN ASPART SUPPLEMENTAL SCALE SQ SCH ×2 (08:00→12:00)
[2017-12-24] MEDS: METOPROLOL TARTRATE 25 MG TAB PO SCH (08:06)
[2017-12-24] MEDS: LOSARTAN 50 MG TAB PO SCH (08:06)
[2017-12-24] MEDS: metFORMIN HCL 500 MG TAB PO SCH ×2 (08:06→17:08)
[2017-12-24] MEDS: glipiZIDE 5 MG TAB PO SCH ×2 (08:06→17:09)
[2017-12-24] MEDS: SODIUM CHLORIDE 0.9% FLUSH 10 ML FLUSH IV FLUSH SCH (08:07)
[2017-12-24] MEDS: HYDROCHLOROTHIAZIDE 25 MG TAB PO SCH (08:07)
[2017-12-24] MEDS: FLUoxetine HCL 10 MG CAP PO SCH (08:09)
[2017-12-24] MEDS: POTASSIUM CHLORIDE 10 MEQ CONTROLLED RELEASE TAB PO SCH (08:13)
[2017-12-24] MEDS: IBUPROFEN 400 MG TAB PO PRN ×2 (08:19→17:09)
[2017-12-24] MEDS ORDERED: IBUP1TAB5 PO (08:37)
[2017-12-24] MEDS ORDERED: METO25TA3 PO (08:37)
--- NOTE | 2017-12-24 08:40 | HHI.DS ---
Discharge Summary Admission Date Dec 21, 2017 at 23:09 Discharge Date: Dec 24, 2017 Admitting Diagnosis right symphysis pubis fracture, inability to ambulate (1) Closed fracture of symphysis pubis ICD Code: S32.599A - Other specified fracture of unspecified pubis, initial encounter for closed fracture Diagnosis: Principal Status: Acute (2) Diabetes ICD Code: E11.9 - Type 2 diabetes mellitus without complications (3) Hypertension ICD Code: I10 - Essential (primary) hypertension (4) Acute respiratory failure with hypoxia ICD Code: J96.01 - Acute respiratory failure with hypoxia Procedures None Brief History - From Admission 87-year-old female with a medical history significant for diabetes, hypertension , coronary artery disease status post stent who normally ambulates with a cane. Patient reports she was walking and tripped on the sidewalk and landed on her right hip. She has been experiencing severe pain and was unable to bear weight. She has been given IV pain medication in the emergency room but was still unable to ambulate. Currently she reports feeling okay at rest but any movement of the hip causes her to have pain. She lives alone. She denies any lightheadedness or shortness of breath prior to falling. CBC/BMP: 12/22/17 0345 12/22/17 0345 Significant Findings Laboratory Tests Test 12/21/17 21:15 12/22/17 03:45 Red Blood Count 5.35 MIL/MM3 (4.00-5.30) Mean Corpuscular Volume 79.5 FL (80.0-100.0) 78.7 FL (80.0-100.0) Mean Corpuscular Hemoglobin 26.2 PG (27.0-34.0) 26.4 PG (27.0-34.0) Neutrophils (%) (Auto) 83.6 % (16.0-70.0) 78.6 % (16.0-70.0) Lymphocytes # (Auto) 0.8 TH/MM3 (1.0-4.8) 0.7 TH/MM3 (1.0-4.8) Prothrombin Time 9.6 SEC (9.8-11.6) Activated Partial Thromboplast Time 24.0 SEC (24.3-30.1) Creatinine 1.04 MG/DL (0.50-1.00) Random Glucose 249 MG/DL (74-106) 157 MG/DL (74-106) Estimat Glomerular Filtration Rate 50 ML/MIN (>89) 64 ML/MIN (>89) Hematocrit 34.8 % (35.0-46.0) Platelet Count 121 TH/MM3 (150-450) Imaging Last Impressions Pelvis X-Ray 12/21/171956 Signed Impressions: Service Date/Time: Thursday, December 21, 2017 20:16 - CONCLUSION: Linear lucency involving the right symphysis pubis suggestive of fracture. Clinical correlation is recommended. Hector Calzada MD Femur X-Ray 12/21/171956 Signed Impressions: Service Date/Time: Thursday, December 21, 2017 20:16 - CONCLUSION: No acute fracture or dislocation of the right femur. Degenerative changes involving the right knee joint. Hector Calzada MD PE at Discharge GENERAL: Alert, oriented 3, NAD. SKIN: Warm and dry. HEAD: Normocephalic. EYES: No scleral icterus. No injection or drainage. NECK: Supple, trachea midline. No JVD or lymphadenopathy. CARDIOVASCULAR: Regular rate and rhythm without murmurs, gallops, or rubs. RESPIRATORY: Breath sounds equal bilaterally. No accessory muscle use. GASTROINTESTINAL: Abdomen soft, non-tender, nondistended. MUSCULOSKELETAL: No cyanosis, or edema. BACK: Nontender without obvious deformity. No CVA tenderness. Pt update on day of discharge Patient is currently doing well. No acute concerns. Working with PT. Front wheel walker delivered to her room. Hospital Course Ms. Esparza is a pleasant 87-year-old female with a history of diabetes , hypertension, coronary artery disease who presented to the emergency department after she fell and injured her right hip. ED workup indicated right pubic symphysis fracture. Orthopedic surgery was consulted. - Right pubic symphysis fracture -Orthopedic surgery recommends nonsurgical management. -Weightbearing as tolerated per orthopedic surgery. Patient is working with physical therapy. -Patient wants to go home with home health. Will arrange Walker and Wheelchair for her. -Pain control with ibuprofen and [place] as needed. - Acute respiratory failure hypoxic - CXR unremarkable. - Possibly due to deconditioning. - Home O2 will be needed. - Diabetes mellitus - Hypertension - Continue Metformin, Glipizide, sliding scale insulin - Continue Losartan, HCTZ, Amlodipine and metoprolol. Full code. Heparin SQ. Pt Condition on Discharge: Good Discharge Disposition: Disch w/ Home Health Serv Discharge Time: <= 30 minutes Discharge Instructions DIET: Follow Instructions for: Heart Healthy Diet Activities you can perform: Regular-No Restrictions Follow up Referrals: Orthopedics - 3 Weeks with Talha Perez MD PCP Follow-up - 1 Week New Medications: Commode 3-in-1 (Commode 3-in-1) 1 Mis Mis EA .XX DIRECTED, #1 0 Refills Oxygen (O2) (Oxygen (O2)) Device LITER MAZIN.CANULA CONTINUOUS for Prevent Hypoxemia, #2 Oxygen Concentrator Portable Gaseous 2 L/min via Nasal [place] Continuous For 99 months Walker with Front Wheels (Walker with Front Wheels) 1 Mis Mis EA .XX DIRECTED, #1 0 Refills Wheelchair (Wheelchair) 1 Mis Mis EA .XX DIRECTED, #1 0 Refills Ibuprofen (Ibuprofen) 400 Mg Tab 400 MG PO Q6H PRN for PAIN SCALE 4 TO 10, #30 TAB Metoprolol Tartrate (Metoprolol Tartrate) 25 Mg Tab 25 MG PO Q12HR for Heart, #60 TAB 5 Refills Continued Medications: Amlodipine Besylate (Norvasc) 5 Mg Tab 5 MG PO DAILY, 0 Refills Fluoxetine (Fluoxetine) 10 Mg Tab 10 MG PO DAILY, #30 TAB 0 Refills Furosemide (Lasix) 20 Mg Tab 20 MG PO DAILY, 0 Refills Glipizide (Glucotrol) 5 Mg Tab 5 MG PO BID, 0 Refills Hydrochlorothiazide (Hydrochlorothiazide) 25 Mg Tab 25 MG PO DAILY, #30 TAB 0 Refills Losartan (Losartan) 50 Mg Tab 50 MG PO DAILY for Blood Pressure Management, #30 TAB 0 Refills Metformin XR 24 HR (Glucophage XR 24 HR) 500 Mg Tab 500 MG PO BID, 0 Refills 2 TABS Potassium Chloride (K-Dur) 10 Meq Tabcr 10 MEQ PO DAILY, 0 Refills Simvastatin 20 mg tab (Zocor) 20 Mg Tab 20 MG PO HS, 0 Refills [Hazaar] () 100 PO DAILY, 0 Refills 100/25 [Magnesium Gluc] () 500 MG PO DAILY, 0 Refills Discontinued Medications: Hydrocodone-Acetaminophen (Lortab 5/500) 5 Mg/500 Mg Tab 1 - 2 TAB PO Q4-6HPRN, #20 0 Refills FOR PAIN Metoprolol Succinate (Toprol Xl) 50 Mg Tabcr 50 MG PO BID, #10 0 Refills Luis A Lee DO Dec 24, 2017 08:40
[2017-12-24] MEDS ORDERED: COMMODE 3-IN-11 MIS (10:33)
[2017-12-24] MEDS ORDERED: OXYGENDME NAS.CANULA (11:13)
--- NOTE | 2017-12-24 11:43 | RADRPT ---
EXAM DATE/TIME: 12/24/2017 11:19 [place] COMPARISON: No previous studies available for comparison. INDICATIONS : Dyspnea. MEDICAL HISTORY : None. SURGICAL HISTORY : None. ENCOUNTER: Initial ACUITY: 1 day PAIN SCORE: 0/10 LOCATION: Bilateral chest FINDINGS: A single view of the chest demonstrates the lungs to be symmetrically aerated without evidence of mas s, infiltrate or effusion. The cardiomediastinal contours are unremarkable. Osseous structures are intact. CONCLUSION: Normal examination. Bill Little MD on December 24, 2017 at 11:41 Board Certified Radiologist. This report was verified electronically.
[2017-12-24 12:00] VITALS: BP 148/65; PULSE 98; RESP 16; TEMP 98; O2SAT 96
[2017-12-24] MEDS: HEPARIN SODIUM - SQ 10,000 UNITS/ML VIAL SQ SCH (12:08)
== END 2017-12-24 17:51 | disposition home health service (06) | DRG 535 ==
LOC: NEPE 18:19 → NEDA 21:48 → OBSVTOIN 23:09 → N06A 12-22 00:53
PROVIDERS: ADMIT Hospitalist; ATTEND Hospitalist
DX: S32.591A Other specified fracture of right pubis, initial encounter for closed fracture (principal); J96.01 Acute respiratory failure with hypoxia; S32.10XA Unspecified fracture of sacrum, initial encounter for closed fracture; R54 Age-related physical debility; E11.9 Type 2 diabetes mellitus without complications; I10 Essential (primary) hypertension; E78.00 Pure hypercholesterolemia, unspecified; I25.10 Atherosclerotic heart disease of native coronary artery without angina pectoris; W01.0XXA Fall on same level from slipping, tripping and stumbling without subsequent striking against object, initial encounter; Y92.480 Sidewalk as the place of occurrence of the external cause; Z79.84 Long term (current) use of oral hypoglycemic drugs; Z95.5 Presence of coronary angioplasty implant and graft; Z96.641 Presence of right artificial hip joint
CPT/HCPCS: 71045; 72170; 73552; 80048; 82948; 85025; 85610; 85730; 94618; 96374; J1644; J1815; J2270; J2405